=== PATIENT | male | born 1950 | race African-American/Black ===

== ENCOUNTER 2021-10-03 11:53 | Inpatient (IN) | payer OTHER ==
[2021-10-03] MEDS ORDERED: BISMUTH SUBSALICYLATE 262 MG/15 ML BTL PO PRN (12:51)
[2021-10-03] MEDS ORDERED: DICYCLOMINE HCL 10 MG CAPSULE PO PRN (12:51)
[2021-10-03] MEDS ORDERED: MAG HYDROX/AL HYDROX/SIMETH 30 ML UNIT-DOSE CUP PO PRN (12:51)
[2021-10-03] MEDS ORDERED: ACETAMINOPHEN 325 MG TABLET (FP) PO PRN ×2 (12:51)
[2021-10-03] MEDS ORDERED: chlordiazePOXIDE HCL 25 MG CAPSULE PO PRN (12:51)
[2021-10-03] MEDS ORDERED: LOPERAMIDE HCL 2 MG CAPSULE PO PRN (12:51)
[2021-10-03] MEDS ORDERED: NICOTINE 10 MG CARTRIDGE (INHALER) IH PRN (12:51)
[2021-10-03] MEDS ORDERED: BENZOCAINE/MENTHOL (CHLORASEPTIC ) LOZENGE MM PRN (12:51)
[2021-10-03] MEDS ORDERED: ONDANSETRON *ODT* 4 MG TABLET SL PRN (12:51)
[2021-10-03] MEDS ORDERED: MAGNESIUM HYDROX 2400MG/30ML ORAL SUSPENSION 30 ML CUP PO PRN (12:51)
[2021-10-03] MEDS ORDERED: IBUPROFEN 400 MG TABLET (FP) PO PRN (12:51)
[2021-10-03] MEDS ORDERED: METHOCARBAMOL 500 MG TABLET PO PRN (12:51)
[2021-10-03 13:56] VITALS: BMI 27.7
[2021-10-03] MEDS: hydrOXYzine PAMOATE 25 MG CAPSULE (FP) PO SCH ×3 (14:30→22:33)
[2021-10-03] MEDS ORDERED: ALBUTEROL SO4 HFA INHALER IH PRN (14:56)
[2021-10-03] MEDS ORDERED: hydrOXYzine PAMOATE 25 MG CAPSULE (FP) PO ONE (15:15)
[2021-10-03] MEDS: PRENATAL VITAMINS W/ FOLIC ACID TABLET (FP) PO SCH (15:44)
[2021-10-03] MEDS: NICOTINE 14 MG/24 HOURS TOPICAL PATCH TD SCH (15:44)
[2021-10-03] MEDS: chlordiazePOXIDE HCL 25 MG CAPSULE PO SCH ×2 (18:05→22:33)
[2021-10-03 19:01] LABS: HEMATOCRIT 27.4 % (35.4-49); HEMOGLOBIN 9.3 GM/dL (11.7-16.9); MCH 36.2 pg (25.7-33.7); MCHC 33.9 g/dl (32.0-35.9); MEAN CELL VOLUME 106.8 fl (80-96); MEAN PLT VOLUME 9.1 fl (7.5-11.1); PLATELET COUNT 215 10^3/uL (134-434); RBC 2.57 M/mm3 (4.00-5.60); RDW 15.3 % (11.9-15.9); WHITE BLOOD COUNT 3.5 K/mm3 (4.0-10.0)
[2021-10-03 19:11] LABS: ALBUMIN 4.4 g/dl (3.4-5.0); CALCIUM 9.9 mg/dL (8.5-10.1)
[2021-10-03 19:12] LABS: BLOOD UREA NITROGEN 11.8 mg/dL (7-18)
[2021-10-03 19:14] LABS: CREATININE 1.5 mg/dL (0.55-1.3)
[2021-10-03 19:16] LABS: BILIRUBIN,TOTAL 0.5 mg/dL (0.2-1); TOT PROT 7.5 g/dl (6.4-8.2)
[2021-10-03] MEDS: THIAMINE HCL 100 MG TABLET (FP) PO SCH (22:33)
[2021-10-03] MEDS: MELATONIN 5 MG TABLETS PO SCH (22:33)
[2021-10-04] MEDS: chlordiazePOXIDE HCL 25 MG CAPSULE PO SCH ×4 (05:43→22:18)
[2021-10-04] MEDS: hydrOXYzine PAMOATE 25 MG CAPSULE (FP) PO SCH ×5 (05:43→22:18)
[2021-10-04] MEDS ORDERED: ALBUTEROL SO4 HFA INHALER IH PRN (08:04)
[2021-10-04] MEDS: NICOTINE 14 MG/24 HOURS TOPICAL PATCH TD SCH (10:05)
[2021-10-04] MEDS: PRENATAL VITAMINS W/ FOLIC ACID TABLET (FP) PO SCH (10:05)
[2021-10-04] MEDS: LISINOPRIL 5 MG TABLET PO SCH (10:05)
[2021-10-04] MEDS: ATORVASTATIN CA 10 MG TABLET (FP) PO SCH (22:18)
[2021-10-04] MEDS: THIAMINE HCL 100 MG TABLET (FP) PO SCH (22:19)
[2021-10-04] MEDS: MELATONIN 5 MG TABLETS PO SCH (22:19)
[2021-10-05] MEDS: chlordiazePOXIDE HCL 25 MG CAPSULE PO SCH ×4 (05:22→22:34)
[2021-10-05] MEDS: hydrOXYzine PAMOATE 25 MG CAPSULE (FP) PO SCH ×5 (05:22→22:29)
[2021-10-05] MEDS: NICOTINE 14 MG/24 HOURS TOPICAL PATCH TD SCH (10:38)
[2021-10-05] MEDS: LISINOPRIL 5 MG TABLET PO SCH (10:38)
[2021-10-05] MEDS: PRENATAL VITAMINS W/ FOLIC ACID TABLET (FP) PO SCH (10:38)
[2021-10-05 11:07] LABS: URINE APPEARANCE CLEAR; URINE BILIRUBIN NEGATIVE (NEGATIVE); URINE COLOR YELLOW; URINE GLUCOSE (UA) NEGATIVE (NEGATIVE); URINE KETONE NEGATIVE (NEGATIVE); URINE LEUK ESTERASE NEGATIVE (NEGATIVE); URINE NITRITE NEGATIVE (NEGATIVE); URINE PROTEIN NEGATIVE (NEGATIVE); URINE UROBILINOGEN 0.2 mg/dL (0.2-1.0)
[2021-10-05 14:08] LABS: SARS-CoV-2 NAA Not Detected (Not Detected)
[2021-10-05] MEDS: MAGNESIUM CITRATE 300 ML BOTTLE PO PRN (17:58)
[2021-10-05] MEDS: THIAMINE HCL 100 MG TABLET (FP) PO SCH (22:29)
[2021-10-05] MEDS: ATORVASTATIN CA 10 MG TABLET (FP) PO SCH (22:29)
[2021-10-05] MEDS: MELATONIN 5 MG TABLETS PO SCH (22:29)
[2021-10-06] MEDS ORDERED: chlordiazePOXIDE HCL 10 MG CAPSULE PO PRN
[2021-10-06] MEDS: hydrOXYzine PAMOATE 25 MG CAPSULE (FP) PO SCH ×5 (05:26→22:27)
[2021-10-06] MEDS: chlordiazePOXIDE HCL 10 MG CAPSULE PO SCH ×4 (05:26→22:27)
[2021-10-06] MEDS: PRENATAL VITAMINS W/ FOLIC ACID TABLET (FP) PO SCH (10:10)
[2021-10-06] MEDS: LISINOPRIL 5 MG TABLET PO SCH (10:10)
[2021-10-06] MEDS: NICOTINE 14 MG/24 HOURS TOPICAL PATCH TD SCH (10:11)
[2021-10-06] MEDS: ATORVASTATIN CA 10 MG TABLET (FP) PO SCH (22:27)
[2021-10-06] MEDS: THIAMINE HCL 100 MG TABLET (FP) PO SCH (22:27)
[2021-10-06] MEDS: MELATONIN 5 MG TABLETS PO SCH (22:27)
[2021-10-07] MEDS: hydrOXYzine PAMOATE 25 MG CAPSULE (FP) PO SCH ×4 (05:46→18:03)
[2021-10-07] MEDS: chlordiazePOXIDE HCL 10 MG CAPSULE PO SCH ×2 (05:46→18:03)
[2021-10-07 10:05] LABS: HEMATOCRIT 25.3 % (35.4-49); HEMOGLOBIN 8.6 GM/dL (11.7-16.9); MCH 35.9 pg (25.7-33.7); MCHC 33.8 g/dl (32.0-35.9); MEAN CELL VOLUME 106.4 fl (80-96); MEAN PLT VOLUME 7.9 fl (7.5-11.1); PLATELET COUNT 306 10^3/uL (134-434); RBC 2.38 M/mm3 (4.00-5.60); RDW 15.6 % (11.9-15.9); WHITE BLOOD COUNT 3.7 K/mm3 (4.0-10.0)
[2021-10-07] MEDS: MAGNESIUM CITRATE 300 ML BOTTLE PO PRN (10:10)
[2021-10-07] MEDS: NICOTINE 14 MG/24 HOURS TOPICAL PATCH TD SCH (10:11)
[2021-10-07] MEDS: PRENATAL VITAMINS W/ FOLIC ACID TABLET (FP) PO SCH (10:11)
[2021-10-07 10:34] LABS: ALBUMIN 3.7 g/dl (3.4-5.0)
[2021-10-07 10:35] LABS: BLOOD UREA NITROGEN 14.4 mg/dL (7-18); CREATININE 1.5 mg/dL (0.55-1.3)
[2021-10-07 10:36] LABS: BILIRUBIN,TOTAL 0.7 mg/dL (0.2-1); TOT PROT 6.2 g/dl (6.4-8.2)
[2021-10-07 10:38] LABS: CALCIUM 10.4 mg/dL (8.5-10.1)
[2021-10-07] MEDS: LISINOPRIL 5 MG TABLET PO SCH (11:49)
[2021-10-07] MEDS ORDERED: FERROUS SO4 325 MG TABLET (FP) PO SCH (17:30)
[2021-10-07 21:20] VITALS: BP 145/84; PULSE 107; TEMP 98
[2021-10-08] MEDS ORDERED: chlordiazePOXIDE HCL 10 MG CAPSULE PO ONE (05:00)
== END 2021-10-07 21:01 | disposition other institution (70) | DRG 897 ==
LOC: YASAS 11:53 → Y3N 14:25
PROVIDERS: ADMIT Allergy & Immunology; ATTEND Surgery
PROC: HZ2ZZZZ Detoxification Services for Substance Abuse Treatment (ICD-10-PCS; principal; 2021-10-03)
DX: F10.230 Alcohol dependence with withdrawal, uncomplicated (principal); F12.20 Cannabis dependence, uncomplicated; D64.9 Anemia, unspecified; E78.5 Hyperlipidemia, unspecified; I10 Essential (primary) hypertension; J45.909 Unspecified asthma, uncomplicated; Z85.46 Personal history of malignant neoplasm of prostate; Z90.79 Acquired absence of other genital organ(s)
CPT/HCPCS: 36415; 80053; 81003; 82607; 82746; 82947; 83036; 83540; 83550; 85027; 85045; 86593; 86780; 87086; 93005; 93010; C9803-CS; U0003; U0005

== ENCOUNTER 2021-10-07 21:22 | Inpatient (IN) | payer OTHER ==
[2021-10-08] MEDS ORDERED: MAGNESIUM CITRATE 300 ML BOTTLE PO PRN (05:13)
[2021-10-08] MEDS ORDERED: LOPERAMIDE HCL 2 MG CAPSULE PO PRN (05:13)
[2021-10-08] MEDS ORDERED: BENZOCAINE/MENTHOL (CHLORASEPTIC ) LOZENGE MM PRN (05:13)
[2021-10-08] MEDS ORDERED: P-EPHED 60MG/TRIPROLIDI 2.5MG TABLET PO PRN (05:13)
[2021-10-08] MEDS ORDERED: guaiFENesin 200 MG/10 ML 10 ML UNIT-DOSE CUPS PO PRN (05:13)
[2021-10-08] MEDS ORDERED: MAG HYDROX/AL HYDROX/SIMETH 30 ML UNIT-DOSE CUP PO PRN (05:13)
[2021-10-08] MEDS ORDERED: ACETAMINOPHEN 325 MG TABLET (FP) PO PRN (05:13)
[2021-10-08] MEDS ORDERED: MAGNESIUM HYDROX 2400MG/30ML ORAL SUSPENSION 30 ML CUP PO PRN (05:13)
[2021-10-08] MEDS ORDERED: IBUPROFEN 400 MG TABLET (FP) PO PRN (05:13)
[2021-10-08] MEDS: PRENATAL VITAMINS W/ FOLIC ACID TABLET (FP) PO SCH (09:05)
[2021-10-08] MEDS: LISINOPRIL 5 MG TABLET PO SCH (09:05)
[2021-10-08] MEDS: MELATONIN 5 MG TABLETS PO SCH (21:38)
[2021-10-08] MEDS: THIAMINE HCL 100 MG TABLET (FP) PO SCH (21:38)
[2021-10-08] MEDS: hydrOXYzine PAMOATE 25 MG CAPSULE (FP) PO PRN (21:39)
[2021-10-08] MEDS: ATORVASTATIN CA 10 MG TABLET (FP) PO SCH (21:39)
[2021-10-09] MEDS: PRENATAL VITAMINS W/ FOLIC ACID TABLET (FP) PO SCH (10:14)
[2021-10-09] MEDS: LISINOPRIL 5 MG TABLET PO SCH (10:14)
[2021-10-09] MEDS: FERROUS SO4 325 MG TABLET (FP) PO SCH ×2 (14:10→21:32)
[2021-10-09] MEDS: POLYETHYLENE GLYCOL (HEALTHYLAX) 3350 17 GM PACKET PO SCH (19:52)
[2021-10-09] MEDS: THIAMINE HCL 100 MG TABLET (FP) PO SCH (21:32)
[2021-10-09] MEDS: DOCUSATE SODIUM 100 MG CAPSULE (FP) PO SCH (21:32)
[2021-10-09] MEDS: MELATONIN 5 MG TABLETS PO SCH (21:32)
[2021-10-09] MEDS: ATORVASTATIN CA 10 MG TABLET (FP) PO SCH (21:32)
[2021-10-10] MEDS: DOCUSATE SODIUM 100 MG CAPSULE (FP) PO SCH ×3 (05:52→21:46)
[2021-10-10] MEDS: FERROUS SO4 325 MG TABLET (FP) PO SCH ×3 (05:52→21:46)
[2021-10-10] MEDS: PRENATAL VITAMINS W/ FOLIC ACID TABLET (FP) PO SCH (10:42)
[2021-10-10] MEDS: hydrOXYzine PAMOATE 25 MG CAPSULE (FP) PO PRN (10:42)
[2021-10-10] MEDS: LISINOPRIL 5 MG TABLET PO SCH (10:42)
[2021-10-10] MEDS: POLYETHYLENE GLYCOL (HEALTHYLAX) 3350 17 GM PACKET PO SCH (10:44)
[2021-10-10] MEDS ORDERED: amLODIPine BESYLATE 10 MG TABLET (FP) PO ONE (15:24)
[2021-10-10 16:08] LABS: SARS-CoV-2 NAA Not Detected (Not Detected)
[2021-10-10] MEDS: THIAMINE HCL 100 MG TABLET (FP) PO SCH (21:46)
[2021-10-10] MEDS: MELATONIN 5 MG TABLETS PO SCH (21:46)
[2021-10-10] MEDS: ATORVASTATIN CA 10 MG TABLET (FP) PO SCH (21:46)
[2021-10-11] MEDS: DOCUSATE SODIUM 100 MG CAPSULE (FP) PO SCH ×3 (06:32→22:01)
[2021-10-11] MEDS: FERROUS SO4 325 MG TABLET (FP) PO SCH ×3 (06:32→22:01)
[2021-10-11] MEDS ORDERED: LISINOPRIL 5 MG TABLET PO SCH (10:00)
[2021-10-11] MEDS: PRENATAL VITAMINS W/ FOLIC ACID TABLET (FP) PO SCH (10:41)
[2021-10-11] MEDS: LOSARTAN POTASSIUM 50 MG TABLET PO SCH (10:42)
[2021-10-11] MEDS: amLODIPine BESYLATE 10 MG TABLET (FP) PO SCH (10:43)
[2021-10-11] MEDS: COLLOIDAL OATMEAL 1 BAR EACH TP PRN (11:58)
[2021-10-11] MEDS: POLYETHYLENE GLYCOL (HEALTHYLAX) 3350 17 GM PACKET PO SCH (11:59)
[2021-10-11] MEDS: ATORVASTATIN CA 10 MG TABLET (FP) PO SCH (22:01)
[2021-10-11] MEDS: THIAMINE HCL 100 MG TABLET (FP) PO SCH (22:01)
[2021-10-11] MEDS: MELATONIN 5 MG TABLETS PO SCH (22:01)
[2021-10-12] MEDS: DOCUSATE SODIUM 100 MG CAPSULE (FP) PO SCH ×3 (06:44→21:37)
[2021-10-12] MEDS: FERROUS SO4 325 MG TABLET (FP) PO SCH ×3 (06:44→21:37)
[2021-10-12] MEDS: PRENATAL VITAMINS W/ FOLIC ACID TABLET (FP) PO SCH (10:24)
[2021-10-12] MEDS: amLODIPine BESYLATE 10 MG TABLET (FP) PO SCH (10:24)
[2021-10-12] MEDS: LOSARTAN POTASSIUM 50 MG TABLET PO SCH (10:24)
[2021-10-12] MEDS: POLYETHYLENE GLYCOL (HEALTHYLAX) 3350 17 GM PACKET PO SCH (10:25)
[2021-10-12] MEDS: ALBUTEROL SO4 HFA INHALER IH PRN (18:55)
[2021-10-12] MEDS: ATORVASTATIN CA 10 MG TABLET (FP) PO SCH (21:37)
[2021-10-12] MEDS: MELATONIN 5 MG TABLETS PO SCH (21:37)
[2021-10-12] MEDS: THIAMINE HCL 100 MG TABLET (FP) PO SCH (21:37)
[2021-10-13] MEDS: DOCUSATE SODIUM 100 MG CAPSULE (FP) PO SCH ×3 (06:08→21:43)
[2021-10-13] MEDS: FERROUS SO4 325 MG TABLET (FP) PO SCH ×3 (06:08→21:43)
[2021-10-13] MEDS: amLODIPine BESYLATE 10 MG TABLET (FP) PO SCH (10:13)
[2021-10-13] MEDS: PRENATAL VITAMINS W/ FOLIC ACID TABLET (FP) PO SCH (10:13)
[2021-10-13] MEDS: LOSARTAN POTASSIUM 50 MG TABLET PO SCH (10:13)
[2021-10-13] MEDS: POLYETHYLENE GLYCOL (HEALTHYLAX) 3350 17 GM PACKET PO SCH (10:14)
[2021-10-13] MEDS: ALBUTEROL SO4 HFA INHALER IH PRN (13:58)
[2021-10-13 16:10] LABS: SARS-CoV-2 NAA Not Detected (Not Detected)
[2021-10-13] MEDS: ATORVASTATIN CA 10 MG TABLET (FP) PO SCH (21:43)
[2021-10-13] MEDS: MELATONIN 5 MG TABLETS PO SCH (21:43)
[2021-10-13] MEDS: THIAMINE HCL 100 MG TABLET (FP) PO SCH (21:43)
[2021-10-14] MEDS: DOCUSATE SODIUM 100 MG CAPSULE (FP) PO SCH ×3 (06:11→21:26)
[2021-10-14] MEDS: FERROUS SO4 325 MG TABLET (FP) PO SCH ×3 (07:35→21:26)
[2021-10-14] MEDS: PRENATAL VITAMINS W/ FOLIC ACID TABLET (FP) PO SCH (10:16)
[2021-10-14] MEDS: LOSARTAN POTASSIUM 50 MG TABLET PO SCH (10:16)
[2021-10-14] MEDS: POLYETHYLENE GLYCOL (HEALTHYLAX) 3350 17 GM PACKET PO SCH (10:17)
[2021-10-14] MEDS: amLODIPine BESYLATE 10 MG TABLET (FP) PO SCH (10:17)
[2021-10-14 12:07] LABS: HEMATOCRIT 27.9 % (35.4-49); HEMOGLOBIN 9.4 GM/dL (11.7-16.9); MCH 35.4 pg (25.7-33.7); MCHC 33.6 g/dl (32.0-35.9); MEAN CELL VOLUME 105.5 fl (80-96); MEAN PLT VOLUME 8.2 fl (7.5-11.1); PLATELET COUNT 494 10^3/uL (134-434); RBC 2.64 M/mm3 (4.00-5.60); RDW 15.1 % (11.9-15.9); WHITE BLOOD COUNT 7.8 K/mm3 (4.0-10.0)
[2021-10-14 18:16] LABS: URINE APPEARANCE CLEAR; URINE BILIRUBIN NEGATIVE (NEGATIVE); URINE COLOR YELLOW; URINE GLUCOSE (UA) NEGATIVE (NEGATIVE); URINE KETONE NEGATIVE (NEGATIVE); URINE LEUK ESTERASE NEGATIVE (NEGATIVE); URINE NITRITE NEGATIVE (NEGATIVE); URINE PROTEIN NEGATIVE (NEGATIVE); URINE UROBILINOGEN 0.2 mg/dL (0.2-1.0)
[2021-10-14] MEDS: THIAMINE HCL 100 MG TABLET (FP) PO SCH (21:26)
[2021-10-14] MEDS: ATORVASTATIN CA 10 MG TABLET (FP) PO SCH (21:26)
[2021-10-14] MEDS: SUVOREXANT 5 MG TABLET PO PRN (21:27)
[2021-10-14] MEDS: MELATONIN 5 MG TABLETS PO SCH (21:30)
[2021-10-15] MEDS: DOCUSATE SODIUM 100 MG CAPSULE (FP) PO SCH ×3 (06:47→21:40)
[2021-10-15] MEDS: FERROUS SO4 325 MG TABLET (FP) PO SCH ×3 (07:15→21:40)
[2021-10-15] MEDS: LOSARTAN POTASSIUM 50 MG TABLET PO SCH (10:27)
[2021-10-15] MEDS: PRENATAL VITAMINS W/ FOLIC ACID TABLET (FP) PO SCH (10:27)
[2021-10-15] MEDS: amLODIPine BESYLATE 10 MG TABLET (FP) PO SCH (10:27)
[2021-10-15] MEDS: POLYETHYLENE GLYCOL (HEALTHYLAX) 3350 17 GM PACKET PO SCH (10:28)
[2021-10-15] MEDS: ALBUTEROL SO4 HFA INHALER IH PRN (18:28)
[2021-10-15] MEDS: ATORVASTATIN CA 10 MG TABLET (FP) PO SCH (21:40)
[2021-10-15] MEDS: THIAMINE HCL 100 MG TABLET (FP) PO SCH (21:40)
[2021-10-15] MEDS: SUVOREXANT 5 MG TABLET PO PRN (21:41)
[2021-10-16] MEDS: FERROUS SO4 325 MG TABLET (FP) PO SCH ×3 (06:12→21:33)
[2021-10-16] MEDS: DOCUSATE SODIUM 100 MG CAPSULE (FP) PO SCH ×3 (06:12→21:33)
[2021-10-16] MEDS: PRENATAL VITAMINS W/ FOLIC ACID TABLET (FP) PO SCH (10:06)
[2021-10-16] MEDS: LOSARTAN POTASSIUM 50 MG TABLET PO SCH (10:07)
[2021-10-16] MEDS: amLODIPine BESYLATE 10 MG TABLET (FP) PO SCH (10:07)
[2021-10-16] MEDS: POLYETHYLENE GLYCOL (HEALTHYLAX) 3350 17 GM PACKET PO SCH (10:08)
[2021-10-16] MEDS: ALBUTEROL SO4 HFA INHALER IH PRN (17:14)
[2021-10-16] MEDS: THIAMINE HCL 100 MG TABLET (FP) PO SCH (21:33)
[2021-10-16] MEDS: ATORVASTATIN CA 10 MG TABLET (FP) PO SCH (21:33)
[2021-10-16] MEDS: SUVOREXANT 5 MG TABLET PO PRN (21:34)
[2021-10-17] MEDS: DOCUSATE SODIUM 100 MG CAPSULE (FP) PO SCH ×3 (06:24→21:32)
[2021-10-17] MEDS: FERROUS SO4 325 MG TABLET (FP) PO SCH ×3 (06:24→21:32)
[2021-10-17] MEDS: COLLOIDAL OATMEAL 1 BAR EACH TP PRN (08:23)
[2021-10-17] MEDS: PRENATAL VITAMINS W/ FOLIC ACID TABLET (FP) PO SCH (10:26)
[2021-10-17] MEDS: amLODIPine BESYLATE 10 MG TABLET (FP) PO SCH (10:26)
[2021-10-17] MEDS: LOSARTAN POTASSIUM 50 MG TABLET PO SCH (10:26)
[2021-10-17] MEDS: POLYETHYLENE GLYCOL (HEALTHYLAX) 3350 17 GM PACKET PO SCH (10:26)
[2021-10-17] MEDS: ATORVASTATIN CA 10 MG TABLET (FP) PO SCH (21:32)
[2021-10-17] MEDS: THIAMINE HCL 100 MG TABLET (FP) PO SCH (21:32)
[2021-10-17] MEDS: SUVOREXANT 5 MG TABLET PO PRN (21:33)
[2021-10-18] MEDS: FERROUS SO4 325 MG TABLET (FP) PO SCH ×3 (06:14→21:34)
[2021-10-18] MEDS: DOCUSATE SODIUM 100 MG CAPSULE (FP) PO SCH ×3 (06:14→21:34)
[2021-10-18] MEDS: POLYETHYLENE GLYCOL (HEALTHYLAX) 3350 17 GM PACKET PO SCH (10:49)
[2021-10-18] MEDS: amLODIPine BESYLATE 10 MG TABLET (FP) PO SCH (10:49)
[2021-10-18] MEDS: PRENATAL VITAMINS W/ FOLIC ACID TABLET (FP) PO SCH (10:49)
[2021-10-18] MEDS: LOSARTAN POTASSIUM 50 MG TABLET PO SCH (10:49)
[2021-10-18] MEDS: ALBUTEROL SO4 HFA INHALER IH PRN (18:01)
[2021-10-18] MEDS: THIAMINE HCL 100 MG TABLET (FP) PO SCH (21:34)
[2021-10-18] MEDS: ATORVASTATIN CA 10 MG TABLET (FP) PO SCH (21:34)
[2021-10-18] MEDS ORDERED: SUVOREXANT 5 MG TABLET PO PRN (22:00)
[2021-10-19] MEDS: FERROUS SO4 325 MG TABLET (FP) PO SCH ×3 (06:26→21:29)
[2021-10-19] MEDS: DOCUSATE SODIUM 100 MG CAPSULE (FP) PO SCH ×3 (06:26→21:29)
[2021-10-19] MEDS: LOSARTAN POTASSIUM 50 MG TABLET PO SCH (10:14)
[2021-10-19] MEDS: PRENATAL VITAMINS W/ FOLIC ACID TABLET (FP) PO SCH (10:14)
[2021-10-19] MEDS: POLYETHYLENE GLYCOL (HEALTHYLAX) 3350 17 GM PACKET PO SCH (10:14)
[2021-10-19] MEDS: amLODIPine BESYLATE 10 MG TABLET (FP) PO SCH (10:14)
[2021-10-19] MEDS: THIAMINE HCL 100 MG TABLET (FP) PO SCH (21:29)
[2021-10-19] MEDS: SUVOREXANT 10 MG TABLET PO PRN (21:29)
[2021-10-19] MEDS: ATORVASTATIN CA 10 MG TABLET (FP) PO SCH (21:29)
[2021-10-20] MEDS: DOCUSATE SODIUM 100 MG CAPSULE (FP) PO SCH ×3 (06:03→21:31)
[2021-10-20] MEDS: FERROUS SO4 325 MG TABLET (FP) PO SCH ×3 (06:03→21:31)
[2021-10-20 06:57] VITALS: TEMP 97.7
[2021-10-20] MEDS: BACITRACIN 0.9 GM PACKET TP SCH ×3 (08:08→21:31)
[2021-10-20] MEDS: LOSARTAN POTASSIUM 50 MG TABLET PO SCH (10:04)
[2021-10-20] MEDS: amLODIPine BESYLATE 10 MG TABLET (FP) PO SCH (10:05)
[2021-10-20] MEDS: POLYETHYLENE GLYCOL (HEALTHYLAX) 3350 17 GM PACKET PO SCH (10:05)
[2021-10-20] MEDS: PRENATAL VITAMINS W/ FOLIC ACID TABLET (FP) PO SCH (10:06)
[2021-10-20] MEDS: THIAMINE HCL 100 MG TABLET (FP) PO SCH (21:31)
[2021-10-20] MEDS: ATORVASTATIN CA 10 MG TABLET (FP) PO SCH (21:31)
[2021-10-20] MEDS: SUVOREXANT 10 MG TABLET PO PRN (21:33)
[2021-10-21] MEDS: FERROUS SO4 325 MG TABLET (FP) PO SCH (06:22)
[2021-10-21] MEDS: DOCUSATE SODIUM 100 MG CAPSULE (FP) PO SCH (06:22)
[2021-10-21 07:11] VITALS: BP 150/84; PULSE 92
[2021-10-21] MEDS: PRENATAL VITAMINS W/ FOLIC ACID TABLET (FP) PO SCH (09:29)
[2021-10-21] MEDS: LOSARTAN POTASSIUM 50 MG TABLET PO SCH (09:30)
[2021-10-21] MEDS: amLODIPine BESYLATE 10 MG TABLET (FP) PO SCH (09:30)
[2021-10-21] MEDS: BACITRACIN 0.9 GM PACKET TP SCH (09:30)
[2021-10-21] MEDS: POLYETHYLENE GLYCOL (HEALTHYLAX) 3350 17 GM PACKET PO SCH (09:31)
== END 2021-10-21 09:40 | disposition home or self-care (01) | DRG 895 ==
LOC: YASAS 21:22 → Y3W 21:23 → Y3E 10-08 14:28 → Y5N 10-08 14:29
PROVIDERS: ADMIT Allergy & Immunology; ATTEND Psychiatry & Neurology Pain Medicine
PROC: HZ42ZZZ Group Counseling for Substance Abuse Treatment, Cognitive-Behavioral (ICD-10-PCS; principal; 2021-10-07)
DX: F10.20 Alcohol dependence, uncomplicated (principal); F10.280 Alcohol dependence with alcohol-induced anxiety disorder; E78.5 Hyperlipidemia, unspecified; I10 Essential (primary) hypertension; J45.909 Unspecified asthma, uncomplicated; R35.0 Frequency of micturition; Z85.46 Personal history of malignant neoplasm of prostate; Z90.79 Acquired absence of other genital organ(s); S01.01XA Laceration without foreign body of scalp, initial encounter; W26.8XXA Contact with other sharp object(s), not elsewhere classified, initial encounter; Y93.E8 Activity, other personal hygiene; Y92.238 Other place in hospital as the place of occurrence of the external cause
CPT/HCPCS: 36415; 81003; 85027; C9803-CS; U0003; U0005